=== PATIENT | female | born 1955 | race Caucasian/White ===

== ENCOUNTER 2018-09-19 08:53 | Outpatient (REF) | payer MEDICAID, SELFPAY ==
[2018-09-19 12:49] LABS: ALT 39 U/L (12-78); AST 19 U/L (15-37); Albumin 3.6 g/dL (3.4-5.0); Alkaline Phosphatase 85 U/L (46-116); Anion Gap 6.9 mmol/L (3-11); BUN 13 mg/dL (7-18); Bilirubin, Total 0.7 mg/dL (0.2-1.0); CO2 33.1 mmol/L (21.0-32.0); CREATININE 0.69 mg/dL (0.55-1.02); Calcium 9.5 mg/dL (8.5-10.1); Chloride 97 mmol/L (98-107); Cholesterol 263 mg/dL (50-200); Glucose 214 mg/dL (70-100); HDL Cholesterol 62 mg/dL (40-60); LDL CHOLESTEROL 166 mg/dL (<100); Potassium 3.8 mmol/L (3.5-5.1); Sodium 137 mmol/L (136-145); Total Protein 7.3 g/dL (6.4-8.2); Triglyceride 196 mg/dL (30-150)
[2018-09-19 12:55] LABS: Hemoglobin A1C 9.4 % (4.5-6.2)
== END 2018-09-19 09:13 ==
LOC: NCHCN 08:53
PROVIDERS: PCP Family Medicine; Visit Provider Family Medicine
DX: I10 Essential (primary) hypertension (principal); R73.09 Other abnormal glucose; Z13.220 Encounter for screening for lipoid disorders; Z00.00 Encounter for general adult medical examination without abnormal findings
CPT/HCPCS: 80053; 80061; 83721; 83036

== ENCOUNTER 2018-10-19 12:38 | Emergency (ER) | payer SELFPAY ==
[2018-10-19] VITALS (12 sets, daily range): BP systolic 119–157; BP diastolic 70–87; PULSE 63–79; RESP 12–18; TEMP 36.5–37.2; O2SAT 93–97
--- NOTE | 2018-10-19 12:47 | DI.RAD_ITS ---
SYMPTOMS/DIAGNOSIS: CHEST PAIN CHEST X-RAY, PA AND LATERAL: No priors. The heart size and pulmonary vasculature are within normal limits. There is a well-circumscribed mass seen in the anteromedial aspect of the right hemithorax. The lungs are clear. No effusions or pneumothoraces are identified. Degenerative changes are seen in the spine. IMPRESSION: 1. No acute pulmonary process. 2. Soft tissue mass seen in the right pericardial space. This may represent a fat lesion or a pericardial cyst. If there are other studies for comparison, they may be submitted and an Addendum will be issued. CT scan of the chest should be considered in this patient for further evaluation of the pericardial lesion.
--- NOTE | 2018-10-19 13:08 | ED.GENADUL_ITS ---
Discharge Plan Disposition Patient Disposition: HOME Condition: Fair Discharge Details Chief Complaint: Chest Pain Clinical Impression: Atypical chest pain, Lipoma, Hypokalemia Primary Care Provider: Estefania Barron ED Provider: Rocio Nguyen Home Meds and New Rx's Prescriptions: Continued hydrochlorothiazide 12.5 MG capsule 12.5 mg PO DAILY RF: 0 benazepril 20 MG tablet 20 mg PO BID RF: 0 aspirin, buffered 325 MG tablet 325 mg PO DAILY RF: 0 amlodipine 5 MG tablet 5 mg PO DAILY RF: 0 thiamine HCl (vitamin B1) [Vitamin B-1] 250 MG tablet 300 mg PO DAILY RF: 0 cyanocobalamin (vitamin B-12) [Vitamin B-12] 500 MCG tablet 500 mcg PO DAILY RF: 0 ascorbate calcium 500 MG tablet 500 mg PO DAILY RF: 0 pyridoxine (vitamin B6) [Vitamin B-6] 100 MG tablet 100 mg PO DAILY RF: 0 vitamin E 400 UNIT capsule 400 unit PO DAILY RF: 0 Calcium,Magnesium,Zinc 1 tab PO DAILY RF: 0 Skeletal Strength 1 tab PO DAILY RF: 0 Urinary Maintaince 1 tab PO DAILY RF: 0 Discharge Instructions Instructions: Chest Pain (ED), Hypokalemia (ED) Additional Instructions: Encourage hydration. Tylenol and/or ibuprofen as needed for discomfort. Please continue with her aspirin other medications as prescribed. Please follow-up with primary care next week for reevaluation. 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 If you develop increased chest pain, shortness of breath, difficulty breathing, exertional symptoms, fever/chills or other new/worsening symptoms please seek care urgently once again Referrals: Estefania Barron [Primary Care Provider] - Medical Decision Making Patient 63-year-old female with history of hypertension, borderline type 2 diabetes, presenting today with chief complaint of chest pain. She reports she had intermittent chest pain for the past few months. States that it comes on at different times, does not seem to be exacerbated with exertion or food. Reports that the length of time it lasts can vary and that typically she tries to forget about it. States that today she noticed it upon awakening. Is not particularly worse today than it has been in the past. Denies any shortness of breath. No difficulty breathing. Denies any cough. No recent travel. States the pain is particularly worse with palpation of the anterior aspect of the chest. Patient also reports that she has had intermittent palpitations for entire life but it does not correlate with the time she is experiencing her chest discomfort. On exam, she appears nontoxic. She is resting comfortably. Patient is noted to be slightly hypertensive at 157/87 but this is not atypical for the patient. She has discomfort elicited with palpation over the sternum but otherwise exam is benign. Plan to obtain routine chest pain work-up. EKG reviewed by Dr. Posada with no acute ischemic changes noted. NSR, rate Labs concerning for potassium 3.2, we will replenish this year. Her glucose is noted to be elevated at 162. Discussed this with the patient who is aware of her elevated glucose. She does report that she had 2 bananas today prior to arrival which may correlate with this. Discussed findings in the chest x-ray with the radiologist. He notes a well-circumscribed mass in the anterior right chest consistent with a lipoma or cyst. They did recommend CT to further evaluate. Discussed this with the patient. This does correlate with worsening of the patient's pain is. Plan to obtain CT at this time We will contacted by the radiologist who advised that the mass is consistent with a pericardial lipoma. Discussed these findings with patient. He advised that this is not compressing any vital structures that appears benign. It is unclear if this is what is causing the patient's discomfort. She continues to palpate her chest feels like the palpitations were caused her discomfort. This is nonexertional, typically brought on by palpation, I do not know this consistent with ACS. Her troponin is less than 0.02 and given the length of symptoms I would expect that this had be a timeout at this time. Advise close follow-up with primary care next week. She reports that she has had a stress and echo historically, believes that she had these recently in [place]. Encourage hydration. Tylenol and ibuprofen as needed for discomfort. Patient is already on a daily aspirin will continue with this. All of her questions and concerns were addressed and she is in agreement this plan HPI General Mode of arrival: ambulatory . Date/Time Provider Initiated Documentation: 10/19/18 12:39 . Limitations to Documentation: no limitations . Information obtained by: patient and RN notes reviewed . History of Present Ill natalie 63 year old F presents to the emergency department with the chief complaint of chest pain, described as moderate, with intensity rated at 5. Quality is described as aching, and is localized to the chest. Patient reports no radiation. Patient started experiencing this month(s) and it has been intermittent. No relieving factors improve symptom(s), No exacerbating factors reported . Patient notes chest pain; denies cough, fever/chills, headaches, loss of appetite, nausea/vomiting, rash, shortness of breath and weakness. Patient did receive the following treatments prior to arrival, none Related Data Home Medications Medication Instructions Recorded Confirmed aspirin, buffered 325 mg PO DAILY 01/15/15 10/19/18 benazepril 20 mg PO BID 01/15/15 10/19/18 hydrochlorothiazide 12.5 mg PO DAILY 01/15/15 10/19/18 Calcium,Magnesium,Zinc 1 tab PO DAILY 06/02/16 10/19/18 Skeletal Strength 1 tab PO DAILY 06/02/16 10/19/18 Urinary Maintaince 1 tab PO DAILY 06/02/16 10/19/18 amlodipine 5 mg PO DAILY 06/02/16 10/19/18 ascorbate calcium 500 mg PO DAILY 06/02/16 10/19/18 cyanocobalamin (vitamin B-12) 500 mcg PO DAILY 06/02/16 10/19/18 [Vitamin B-12] pyridoxine (vitamin B6) [Vitamin 100 mg PO DAILY 06/02/16 10/19/18 B-6] thiamine HCl (vitamin B1) [Vitamin 300 mg PO DAILY 06/02/16 10/19/18 B-1] vitamin E 400 unit PO DAILY 06/02/16 10/19/18 Allergies Allergy/AdvReac Type Severity Reaction Status Date / Time morphine AdvReac Intermediate Skin Rash Unverified 10/19/18 13:44 & swelling Review of Systems Constitutional Reports as per HPI, Denies chills, Denies fever(s), Denies headache(s), Denies lethargy and Denies poor appetite Eyes Denies change in vision ENT Denies dizziness and Denies headache(s) Cardiovascular Reports as per HPI, Reports chest pain (intermittent), Denies syncope, Denies rapid heart rate, Denies lightheadedness, Reports palpitations (not correlating with CP), Denies dyspnea and Denies dyspnea on exertion Respiratory Reports as per HPI, Denies chest congestion, Denies cough, Denies pain on inspiration, Denies pain with cough, Denies dyspnea, Denies dyspnea on exertion and Denies wheezing Gastrointestinal Reports as per HPI, Denies abdominal pain, Denies diarrhea, Denies nausea and Denies vomiting Musculoskeletal Reports as per HPI and Denies back pain Integumentary/Breasts Reports as per HPI and Denies rash Neurologic Reports as per HPI, Denies dizziness, Denies syncope and Denies headache(s) Endocrine Reports palpitations (not correlating with CP) Allergic/Immunologic Denies wheezing [facility] Social History Smoking/Tobacco Use Status: Never Drug use: Never Substance use type: does not use Do you feel safe at home: Yes Do you feel safe in your relationship?: Yes Exam Const General: cooperative, healthy appearing, comfortable, no acute distress and well developed Nutritional Appearance: average body habitus and well nourished Orientation: alert, awake and oriented x3 HENMT Head: normal to inspection Ears: hearing grossly normal bilaterally Mouth: moist mucous membranes Chest Chest: normal inspection of the chest, normal palpation of entire chest wall, no crepitus and tenderness sternum Resp Effort & Inspection: normal respiratory effort, able to speak in complete sentences and no respiratory distress Auscultation: clear to auscultation bilaterally, no rales, no rhonchi and no wheezes Cardio Rate: regular rate Rhythm: regular rhythm Heart Sounds: S1 normal and S2 normal GI Inspection: normal to inspection, no edema and non-distended Palpation: soft, no hepatosplenomegaly, not firm, no guarding, not rigid and nontender Auscultation: normal bowel sounds Back/Spine/Pelvis Back: no CVA tenderness Thoracic/Lumbar Spine: thoracic and lumbar spine normal to inspection Skin General skin exam: no rashes or lesions noted Trauma: no lacerations or abrasions Neuro General: alert, awake and oriented x3 Cognition: normal cognition Speech: speech normal Gait: normal gait Extrem General: normal to inspection, normal capillary refill, no pedal edema, no calf tenderness and normal gait Psych Appearance: grossly normal and well kempt Mental Status: mental status grossly normal Speech and Movement: speech and movement normal
[2018-10-19 13:41] LABS: ALT 39 U/L (12-78); AST 20 U/L (15-37); Albumin 3.8 g/dL (3.4-5.0); Alkaline Phosphatase 77 U/L (46-116); Anion Gap 9.3 mmol/L (3-11); BUN 15 mg/dL (7-18); Bilirubin, Total 0.4 mg/dL (0.2-1.0); CO2 31.7 mmol/L (21.0-32.0); CREATININE 0.69 mg/dL (0.55-1.02); Calcium 9.9 mg/dL (8.5-10.1); Chloride 99 mmol/L (98-107); Glucose 165 mg/dL (70-100); Magnesium 1.8 mg/dL (1.8-2.4); Potassium 3.2 mmol/L (3.5-5.1); Sodium 140 mmol/L (136-145); Total Protein 7.9 g/dL (6.4-8.2)
[2018-10-19 13:45] LABS: Troponin I < 0.02 ng/mL (0.00-0.06)
[2018-10-19 13:49] LABS: HCT 41.7 % (36.0-46.0); HGB 14.3 g/dL (12.0-15.5); Mean Corp. HGB Concentration 34.3 g/dL (32.0-36.0); Mean Corpuscular Hemoglobin 31.4 pg (27.0-33.0); Mean Corpuscular Volume 91.4 fL (80-95); Mean Platelet Volume 10.3 fL (8.0-11.0); Neutrophils % 60.7; Platelet Count 300 x1000/uL (130-400); RBC 4.56 m/cumm (4.00-5.20); RBC Distribution Width 12.6 % (11.7-14.6); White Blood Cell Count 8.42 k/cumm (4.4-10.8)
[2018-10-19 13:50] LABS: Abs Immature Grans 0.02 k/cumm (0.0-0.09); Absolute Basophil Count 0.05 k/cumm (0.0-0.2); Absolute Eosinophil Count 0.25 k/cumm (0.0-0.7); Absolute Monocyte Count 0.49 k/cumm (0.11-0.7); Absolute Neutrophil Count 5.11 k/cumm (1.2-6.7); Basophils % 0.6; Immature Grans % 0.2; Lymphocytes % 29.7; Monocytes % 5.8
[2018-10-19] MEDS: POTASSIUM CHLORIDE 20 MEQ, POTASSIUM CHLORIDE 10 MEQ 30 MEQ PO (13:58)
[2018-10-19] MEDS: Normal Saline 1,000 ML 1000 ML IV (14:10)
--- NOTE | 2018-10-19 15:00 | DI.CT_ITS ---
SYMPTOMS/DIAGNOSIS: ANTERIOR CHEST PAIN, MASS NOTED ON XR CT SCAN OF THE CHEST: Comparison chest x-ray from the same day. The visualized thyroid gland is unremarkable. The thoracic aorta shows atherosclerosis. No aneurysmal dilatation is seen. The heart size is within normal limits. No significant pericardial effusion is seen. Coronary artery calcifications are present. There is a pericardial lipoma seen in the right pericardial region. This corresponds to the findings seen on the chest x-ray. It measures 4.1 cm transverse x 2.5 cm AP x 5.9 cm craniocaudad. No significant thoracic adenopathy, pleural effusion or pneumothorax is identified. No focal consolidating infiltrates are seen in the lungs. There is a small calcified granuloma in the right upper lobe. The tracheobronchial tree is unremarkable. The upper abdominal images show diffuse decreased attenuation of the liver suggesting fatty infiltration. The patient is status post cholecystectomy. There is a 1.3 cm hypodense nodule on the left adrenal gland, likely reflecting an adenoma. Degenerative changes are seen in the spine. IMPRESSION: 1. A 5.9 x 4.1 x 2.5 cm fat attenuation mass in the right pericardial space, most consistent with a pericardial lipoma. 2. No acute pulmonary process. These findings were discussed with the Emergency Department on the date of the examination.
[2018-10-19] MEDS: Omnipaque 350 MG/ML 100 ML BTL IJ (15:01)
== END 2018-10-19 16:56 | disposition home or self-care (01) ==
PROVIDERS: Emergency Provider Physician Assistant; PCP Family Medicine
DX: R07.89 Other chest pain (principal); D17.4 Benign lipomatous neoplasm of intrathoracic organs; E87.6 Hypokalemia; I10 Essential (primary) hypertension
CPT/HCPCS: 36415; 80053; 93005; 96360; 99285; 71046; 71260; 83735; 84484; 85025; 93010; J3490